=== PATIENT | male | born 1950 | race Caucasian/White ===

== ENCOUNTER 2019-08-26 12:27 | Emergency (ER) | payer BC ==
[2019-08-26] MEDS ORDERED: ASPIRIN 81 MG CHEWABLE TABLET PO ONE (12:33)
[2019-08-26] MEDS ORDERED: DILTIAZEM 25MG/5ML VIAL IV ONE (12:34)
--- NOTE | 2019-08-26 12:40 | Emergency Department Record ---
History of Present Illness - General Chief Complaint: Chest Pain Stated Complaint: CHEST PAIN,DIZZINESS Time Seen by Provider: 08/26/19 12:32 Source: Patient, RN notes reviewed Mode of Arrival: Ambulatory - History of Present Illness Initial Comments: pateint states tachycardia and it started 2.5 hours ago and he felt some palpatations during last night. Histoery of atrial fib years ago in [place] and converted with one shock and medication and currently not on any medications for that now.[facility]. Patient states some chest heaviness. Patient said tachycardia and 3 am today with palpitations and chest heaviness started 2.5 hours ago and that alsmost gone when he got here and when his heart rate sloweed down the heaviness went away MD Complaint: Chest pain - Related Data Previous Rx's Medication Instructions Recorded Apixaban [Eliquis] 5 mg PO BID #60 tablet 08/26/19 Metoprolol Succinate [Toprol Xl] 25 mg PO DAILY #30 tab.er.24h 08/26/19 Allergies Allergy/AdvReac Type Severity Reaction Status Date / Time No Known Drug Allergies Allergy Verified 08/26/19 12:39 Review of Systems Reviewed: No additional complaints except as noted below Constitutional: Reports: As per HPI. Denies: Chills, Fever, Malaise, Night sweats, Weakness, Weight change Eyes: Reports: As per HPI. Denies: Eye discharge, Eye pain, Photophobia, Vision change ENT: Reports: As per HPI. Denies: Congestion, Dental pain, Ear pain, Epistaxis, Hearing loss, Throat pain Respiratory: Reports: As per HPI. Denies: Cough, Dyspnea, Hemoptysis, Stridor, Wheezes Cardiovascular: Reports: As per HPI, Arrhythmia, Chest pain, Dyspnea on exertion, Palpitations. Denies: Edema, Murmurs, Orthopnea, Paroxysmal nocturnal dyspnea, Rheumatic Fever, Syncope Endocrine: Reports: As per HPI. Denies: Fatigue, Heat or cold intolerance, Polydipsia, Polyuria Gastrointestinal: Reports: As per HPI. Denies: Abdominal pain, Constipation, Diarrhea, Hematemesis, Hematochezia, Melena, Nausea, Vomiting Genitourinary: Reports: As per HPI. Denies: Dysuria, Frequency, Hematuria, Incontinence, Retention, Testicular pain, Testicular mass, Urgency Musculoskeletal: Reports: As per HPI. Denies: Arthralgia, Back pain, Gout, Joint swelling, Myalgia, Neck pain Skin: Reports: As per HPI. Denies: Bruising, Change in color, Change in hair/nails, Lesions, Pruritus, Rash Neurological: Reports: As per HPI. Denies: Abnormal gait, Confusion, Headache, Numbness, Paresthesias, Seizure, Tingling, Tremors, Vertigo, Weakness Psychiatric: Reports: As per HPI. Denies: Anxiety, Auditory hallucinations, Depression, Homicidal thoughts, Suicidal thoughts, Visual hallucinations Hematological/Lymphatic: Reports: As per HPI. Denies: Anemia, Blood Clots, Easy bleeding, Easy bruising, Swollen glands Past Medical History - SOCIAL HISTORY Smoking Status: Current some day smoker - RESPIRATORY Hx Respiratory Disorders: No - CARDIOVASCULAR Hx Cardio Disorders: Yes Hx Chest Pain: Yes Hx Irregular Heartbeat: Yes Hx Palpitations: Yes Hx Percutaneous Transluminal Coronary Angioplasty (PTCA): No Comment:: HX cardioversion about 10 years ago - NEURO Hx Neuro Disorders: No - GI Hx GI Disorders: No - Hx Genitourinary Disorders: No - ENDOCRINE Hx Endocrine Disorders: No - MUSCULOSKELETAL Hx Musculoskeletal Disorders: No - PSYCH Hx Psych Problems: Yes Hx Depression: Yes - HEMATOLOGY/ONCOLOGY Hx Hematology/Oncology Disorders: No Family Medical History Hx Cancer: Father, Grandparents Physical Exam - General General Appearance: Alert, Oriented x3, Cooperative, Mild distress - Head Head exam: Normal inspection - Eye Eye exam: Normal appearance, PERRL Pupils: Normal accommodation - ENT ENT exam: Normal exam, Mucous membranes moist, Normal external ear exam, Normal orophraynx, TM's normal bilaterally Ear exam: Normal external inspection. negative: External canal tenderness Nasal Exam: Normal inspection. negative: Discharge, Sinus tenderness Mouth exam: Normal external inspection, Tongue normal Teeth exam: Normal inspection. negative: Dental caries Throat exam: Normal inspection. negative: Tonsillar erythema, Tonsillar exudate - Neck Neck exam: Normal inspection, Full ROM. negative: Tenderness - Respiratory Respiratory exam: Normal lung sounds bilaterally. negative: Respiratory distress - Cardiovascular Cardiovascular Exam: Irregular rhythm, Tachycardia - GI/Abdominal GI/Abdominal exam: Soft, Normal bowel sounds. negative: Tenderness - Rectal Rectal exam: Deferred - exam: Deferred - Extremities Extremities exam: Normal inspection, Full ROM, Normal capillary refill. negative: Tenderness - Back Back exam: Reports: Normal inspection, Full ROM. Denies: Muscle spasm, Rash noted, Tenderness - Neurological Neurological exam: Alert, Normal gait, Oriented X3, Reflexes normal - Psychiatric Psychiatric exam: Normal affect, Normal mood - Skin Skin exam: Dry, Intact, Normal color, Warm Course - Reevaluation(s) Reevaluation #1: 08/26/19 14:37 chest pain is gone and he feels better and wants to go home. Discussed case with Dr. Tapia 08/26/19 16:55 Advised best to stay and he said no and risks discussed ie Reevaluation #2: patient is refusing to go to [facility] and refuses to admitted to the hospital and will obtain a second set of trop in one hour and will start him on elliquis and toprol and follow up with or Dr Mak 08/26/19 15:06 08/26/19 15:08 Risk discussed and explained to him he could and he is still refusing to stay Reevaluation #3: second trop negative and discussed with Dr Garcia and will discharge 08/26/19 16:48 Reevaluation #4: patient is feeling better 08/26/19 16:48 Medical Decision Making - Lab Data Result diagrams: 08/26/19 12:34 08/26/19 12:34 Disposition Clinical Impression: Atrial fibrillation with rapid ventricular response Disposition: Home, Self-Care Condition: (1) Good Instructions: Chest Pain (ED), A-fib (Atrial Fibrillation) (ED) Additional Instructions: take metropolol 25 mg once a day also take eliquis 5 mg twice a day return to ED if any problems Prescriptions: Apixaban [Eliquis] 5 mg PO BID #60 tablet Metoprolol Succinate [Toprol Xl] 25 mg PO DAILY #30 tab.er.24h Forms: Patient Portal Access Time of Disposition: 16:55 Quality - Quality Measures Quality Measures: N/A - Blood Pressure Screening Does Patient Have Any of the Following: No Blood Pressure Classification: Pre-Hypertensive BP Reading Systolic Measurement: 125 Diastolic Measurement: 88 Screening for High Blood Pressure: < Pre-Hypertensive BP, F/U Documented > [G8950] Pre-Hypertensive Follow-up Interventions: Referral to alternative/primary care provider.
[2019-08-26 12:42] LABS: ABSOLUTE NEUTROPHIL COUNT 4.16; BASO % 0.3 % (0-6); EOS % 1.1 % (0-6); GRAN % 58.8 % (47-80); HEMATOCRIT 48.1 % (42.0-52.0); LYMPH % 29.3 % (16-45); MEAN CELL VOLUME 83.8 fl (81-97); MEAN CORPUSCULAR HGB CONC 33.3 g/dl (32-36); MONO % 10.5 % (0-9); PLATELET COUNT 214 K/uL (130-400); RED BLOOD COUNT 5.74 M/uL (4.40-5.70); RED CELL DISTRIBUTION WIDTH 13.9 % (11.5-14.5); WHITE BLOOD COUNT W/O DIFF 7.1 K/uL (4.2-12.2)
[2019-08-26 12:49] LABS: MEAN CORPUSCULAR HEMOGLOBIN 27.8 pg (27-33)
[2019-08-26 12:57] LABS: BLOOD UREA NITROGEN 15 mg/dL (8-23); CREATININE 0.9 mg/dL (0.7-1.2); EST GLOMERULAR FILTRATION RATE > 60 mL/min
[2019-08-26 13:00] LABS: GLUCOSE,RANDOM 76 mg/dL (74-109)
--- NOTE | 2019-08-26 13:38 | RADIOLOGY REPORT ---
EXAMINATION: Portable Single View Chest EXAM DATE: 08/26/2019 1:07 PM TECHNIQUE: Single portable upright AP view chest at 1257. INDICATION: chest pain. The technologist elicited the history: Sudden onset of chest pain. COMPARISON: Portable chest radiograph, 11/21/2014. ENCOUNTER: Not applicable FINDINGS: The heart, mediastinum, and pulmonary vasculature are normal. Tortuosity of the aorta. No lung consol idation or pleural effusions are present. No pneumothorax is present. The bony thorax appears intact . IMPRESSION: No acute cardiopulmonary disease is present. Dictated by: Mary Rubalcava MD on 08/26/2019 1:35 PM. .
[2019-08-26] MEDS ORDERED: APIXABAN 5MG TABLET PO ONE (15:10)
[2019-08-26] MEDS ORDERED: METOPROLOL SUCC 50 MG TABLET PO ONE (15:12)
== END 2019-08-26 17:07 | disposition home or self-care (01) ==
LOC: ER 12:27
DX: I48.20 Chronic atrial fibrillation, unspecified (principal); R42 Dizziness and giddiness; F17.210 Nicotine dependence, cigarettes, uncomplicated
CPT/HCPCS: 99285 ×2; 96374; 85025; 85730; 80048; 84484; 71045; 93005; J3490; 93010